=== PATIENT | male | born 1980 | race Caucasian/White ===

== ENCOUNTER 2019-08-19 19:22 | Outpatient (CLI) | payer OTHER | END 2019-08-19 19:23 | disposition home or self-care (01) | LOC: COV 19:22 | PROVIDERS: ATTEND Family Medicine | DX: R05 Cough (principal); M79.10 Myalgia, unspecified site; R53.83 Other fatigue; J02.9 Acute pharyngitis, unspecified | CPT/HCPCS: 81599 ==

== ENCOUNTER 2020-09-20 08:00 | Outpatient (CLI) | payer OTHER ==
[2020-09-20 12:26] LABS: BASOPHILS % (AUTO) 0.6 %; EOSINOPHILS # (AUTO) 0.1 10^3/uL (0.0-0.7); EOSINOPHILS % (AUTO) 1.3 %; HCT - HEMATOCRIT 44.5 % (42.0-52.0); HGB - HEMOGLOBIN 15.6 g/dL (14.0-18.0); LYMPHOCYTES # (AUTO) 1.7 10^3/uL (1.5-3.5); LYMPHOCYTES % (AUTO) 32.2 %; MEAN CORPUSCULAR HEMOGLOBIN 31.8 pg (27.0-31.0); MEAN CORPUSCULAR HGB CONC 35.1 g/dL (32.0-36.0); MEAN CORPUSCULAR VOLUME 90.8 fL (80.0-94.0); MEAN PLATELET VOLUME 9.8 fL (7.4-11.4); MONOCYTES # (AUTO) 0.4 10^3/uL (0.0-1.0); MONOCYTES % (AUTO) 6.7 %; NEUTROPHILS # (AUTO) 3.2 10^3/uL (1.5-6.6); PLT - PLATELET COUNT 308 10^3/uL (130-450); RED CELL DISTRIBUTION WIDTH 11.9 % (12.0-15.0); WHITE BLOOD COUNT 5.4 x10^3/uL (4.8-10.8)
[2020-09-20 12:47] LABS: ALBUMIN 4.5 g/dL (3.2-5.5); ALBUMIN/GLOBULIN RATIO 1.6 (1.0-2.2); ALKALINE PHOSPHATASE 51 IU/L (42-121); ALT ALANINE AMINOTRANSFERASE 18 IU/L (10-60); AST ASPARTATE AMINOTRANSFERASE 21 IU/L (10-42); BILIRUBIN,TOTAL 1.1 mg/dL (0.2-1.0); BUN - BLOOD UREA NITROGEN 28 mg/dL (6-20); CALCIUM 9.3 mg/dL (8.5-10.3); CARBON DIOXIDE - CO2 26 mmol/L (21-32); CHLORIDE 102 mmol/L (101-111); CHOL/HDL RATIO 4.6 (<5.0); CHOLESTEROL 190 mg/dL; CREATININE 0.9 mg/dL (0.6-1.2); GFR - MDRD 93 (>89); GLUCOSE 83 mg/dL (70-100); HDL CHOLESTEROL 41 mg/dL; LDL CHOLESTEROL,CALCULATED 133 mg/dL; LDL/HDL RATIO 3.2 (<3.6); POTASSIUM 4.2 mmol/L (3.5-5.0); SODIUM 138 mmol/L (135-145); TOTAL PROTEIN 7.4 g/dL (6.7-8.2); TRIGLYCERIDES 78 mg/dL; VALPROIC ACID (DEPAKOTE) 38.6 ug/mL; VLDL CHOLESTEROL 16 mg/dL
[2020-09-20 13:00] LABS: THYROID STIMULATING HORMONE 1.41 uIU/mL (0.34-5.60)
== END 2020-09-20 23:59 | disposition home or self-care (01) ==
LOC: LAB.WCP 08:00
PROVIDERS: ATTEND Family Medicine
DX: Z00.00 Encounter for general adult medical examination without abnormal findings (principal); R56.9 Unspecified convulsions
CPT/HCPCS: 36415; 80053; 80061; 80164; 83721; 84443; 85025

== ENCOUNTER 2020-10-20 18:07 | Emergency (ER) | payer OTHER ==
[2020-10-20] MEDS ORDERED: AMOXICILLIN 250 MG CAPSULE PO STA (18:33)
--- NOTE | 2020-10-20 18:36 | ED Physician Documentation ---
PD HPI ABD PAIN - Stated complaint Stated Complaint: COUGH/CHEST TIGHTNESS - Chief complaint Chief Complaint: Cardiac - History obtained from History obtained from: Patient - Additional information Additional information: Healthy 40-year-old gentleman who is fully immunized against Covid having had his second Pfizer shot many months ago presents with illness that started 2 nights ago with fevers chills and body aches. He had a cough. Now has a rattling sound in his chest. No persistent fevers or shortness of breath. Review of Systems Constitutional: reports: Fever, Chills, Myalgias Eyes: reports: Reviewed and negative Nose: reports: Reviewed and negative Throat: reports: Reviewed and negative Cardiac: reports: Reviewed and negative Respiratory: reports: Reviewed and negative PD PAST MEDICAL HISTORY - Past Surgical History Past Surgical History: No - Present Medications Home Medications: Ambulatory Orders Medication Instructions Recorded Confirmed Divalproex [Jakob Sheehan] 250 mg PO DAILY 08/16/13 10/20/20 Amoxicillin 2 tab PO TID 7 Days #42 tab 10/20/20 - Allergies Allergies/Adverse Reactions: Allergies Allergy/AdvReac Type Severity Reaction Status Date / Time No Known Drug Allergies Allergy Verified 08/16/13 04:49 - Social History Does the pt smoke?: No Smoking Status: Never smoker Does the pt drink ETOH?: No - Immunizations Immunizations are current?: Yes PD ED PE NORMAL - Vitals Vital signs reviewed: Yes - General General: Alert and oriented X 3, No acute distress - HEENT HEENT: Pharynx benign - Neck Neck: Supple, no meningeal sign, No bony TTP - Cardiac Cardiac: RRR, No murmur - Respiratory Respiratory: No respiratory distress, Other (Clear and focal rhonchi at the left base, nonlabored) - Abdomen Abdomen: Non tender - Back Back: No CVA TTP, No spinal TTP - Derm Derm: Normal color, Warm and dry - Neuro Neuro: Alert and oriented X 3, Normal speech Results - Vitals Vitals: Vital Signs - 24 hr 10/20/20 10/20/20 18:09 18:51 Temperature 36.7 C 36.6 C Heart Rate 97 84 Respiratory 16 16 Rate Blood Pressure 122/94 H 124/86 H O2 Saturation 100 99 Oxygen O2 Source Room air - EKG (time done) 1811 Rate: Rate (enter#) (93) Rhythm: NSR [place]: Normal Intervals: Normal [place] QRS: Normal Ischemia: Normal ST segments - Rads (name of study) 1v cxr Radiology: EMP read contemporaneously (NAD) PD MEDICAL DECISION MAKING - ED course ED course: He has clinical pneumonia, the x-ray is unimpressive. He is treated with high- dose amoxicillin per IDSA guidelines. We discussed Covid testing but since he is fully immunized he declined. Departure - Departure Disposition: Home, Self Care Clinical Impression: Pneumonia Qualifiers: Pneumonia type: due to unspecified organism Laterality: left Lung location: lower lobe of lung Qualified Code(s): J18.9 - Pneumonia, unspecified organism Condition: Good Record reviewed to determine appropriate education?: Yes Instructions: ED Pneumonia Adult Prescriptions: Amoxicillin 2 tab PO TID 7 Days #42 tab Comments: Call your doctor to arrange a follow-up appointment, make the next available appointment. In the interim, return anytime if worse or if new symptoms develop. Discharge Date/Time: 10/20/20 18:52
--- NOTE | 2020-10-20 18:51 | XRAY Report ---
PROCEDURE: Chest 1 View X-Ray INDICATIONS: Chest pain TECHNIQUE: One view of the chest was acquired. COMPARISON: None FINDINGS: Surgical changes and devices: None. Lungs and pleura: No pleural effusions or pneumothorax. Lungs are clear. Mediastinum: Mediastinal contours appear normal. Heart size is normal. Bones and chest wall: No suspicious bony lesions. Overlying soft tissues appear unremarkable. IMPRESSION: No acute cardiopulmonary findings Reviewed by: Jag Lamas MD on 10/20/2020 5:49 PM AKDT Approved by: Jag Lamas MD on 10/20/2020 5:49 PM AKDT Station ID: [id number]
[2020-10-20 18:53] VITALS: BP 124/86
== END 2020-10-20 18:52 | disposition home or self-care (01) ==
LOC: ED 18:07
DX: J18.9 Pneumonia, unspecified organism (principal)
CPT/HCPCS: 71045; 93005; 99283; A9270

== ENCOUNTER 2020-11-24 04:51 | Emergency (ER) | payer OTHER ==
[2020-11-24 05:13] LABS: RAPID STREP SCREEN Negative (Negative)
[2020-11-24] MEDS ORDERED: KETOROLAC 30 MG/ML VIAL IVP STA (05:18)
[2020-11-24] MEDS ORDERED: DEXAMETHASONE 10 MG/ML VIAL IV STA (05:18)
--- NOTE | 2020-11-24 05:22 | ED Physician Documentation ---
History of Present Illness - Stated complaint Stated Complaint: SWELLING, PX IN THROAT - Chief complaint Chief Complaint: Heent - History obtained from History obtained from: Patient - Additonal information Additional information: Patient comes emergency department complaining of acute onset of sore throat that started about an hour ago. 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 He states he took some NyQuil and try to get some more rest but that the pain got worse and he began to feel as though something was impinging on his throat inside. Patient denies any swelling or pain anywhere else. No rash. No fevers or chills. No rhinorrhea or cough. Review of Systems Ten Systems: 10 systems reviewed and negative Constitutional: reports: Reviewed and negative Eyes: reports: Reviewed and negative Ears: reports: Reviewed and negative Nose: reports: Reviewed and negative Throat: reports: Sore throat, Swollen tonsils Cardiac: reports: Reviewed and negative Respiratory: reports: Reviewed and negative GI: reports: Reviewed and negative : reports: Reviewed and negative Skin: reports: Reviewed and negative Musculoskeletal: reports: Reviewed and negative Neurologic: reports: Reviewed and negative Psychiatric: reports: Reviewed and negative Endocrine: reports: Reviewed and negative Immunocompromised: reports: Reviewed and negative PD PAST MEDICAL HISTORY - Past Medical History Past Medical History: Yes Cardiovascular: None Respiratory: None Neuro: Seizure disorder Endocrine/Autoimmune: None GI: None : None HEENT: None Psych: None Musculoskeletal: None Derm: None - Past Surgical History Past Surgical History: No - Present Medications Home Medications: Ambulatory Orders Medication Instructions Recorded Confirmed Divalproex [Jakob Sheehan] 1,000 mg PO DAILY 08/16/13 11/24/20 predniSONE [Deltasone] 60 mg PO DAILY 5 Days #15 tablet 11/24/20 - Allergies Allergies/Adverse Reactions: Allergies Allergy/AdvReac Type Severity Reaction Status Date / Time No Known Drug Allergies Allergy Verified 11/24/20 05:03 - Social History Does the pt smoke?: No Smoking Status: Never smoker Does the pt drink ETOH?: No Does the pt have substance abuse?: No - Immunizations Immunizations are current?: Yes - POLST Patient has POLST: No PD ED PE NORMAL - Vitals Vital signs reviewed: Yes - General General: Alert and oriented X 3, No acute distress, Well developed/nourished - HEENT HEENT: Atraumatic, PERRL, EOMI, Moist mucous membranes - Neck Neck: Supple, no meningeal sign - Cardiac Cardiac: RRR, No murmur - Respiratory Respiratory: No respiratory distress, Clear bilaterally - Derm Derm: Normal color, Warm and dry, No rash - Extremities Extremities: No deformity, No edema - Neuro Neuro: Alert and oriented X 3 - Psych Psych: Normal mood, Normal affect Results - Vitals Vitals: Vital Signs - 24 hr 11/24/20 11/24/20 11/24/20 05:01 06:27 06:45 Temperature 36.8 C 36.8 C Heart Rate 113 H 66 66 Respiratory 16 15 15 Rate Blood Pressure 118/88 H 99/74 99/74 O2 Saturation 98 96 96 Oxygen O2 Source Room air - Labs Labs: Laboratory Tests 11/24/20 05:00 Group A Strep Rapid Negative - Rads (name of study) CT soft tissue neck Radiology: Final report received, EMP read indepedently, See rad report (L posterior LAD) PD MEDICAL DECISION MAKING - ED course Complexity details: reviewed results, re-evaluated patient, considered differential, d/w patient ED course: Patient was treated with Decadron and Toradol, and was sent for CT with contrast of the soft tissues of the neck. This showed multiple lymph nodes that were borderline enlarged and one enlarged left posterior pharyngeal level 1 lymph node, corresponding with the area of enlargement on patient's exam. No abscess or other fluid collection was noted. Patient strep test was also negative. I discussed the findings with the patient. At this time, I do not find indication for antibiotics. I will give him a prescription for prednisone that he may fill and take as needed if his pharyngeal pain and swelling flares up. The patient is stable and there is no evidence of impending airway compromise and can be discharged home. Departure - Departure Disposition: 01 Home, Self Care Clinical Impression: Cervical lymphadenitis Condition: Stable Instructions: ED Cervical Adenitis No Abx Tx Prescriptions: predniSONE [Deltasone] 60 mg PO DAILY 5 Days #15 tablet Comments: Your CT scan shows an enlarged lymph node in the area where you are feeling the swelling. You have some other lymph nodes that are borderline enlarged on both sides of your neck, as well. This is not uncommon for this location, though it is possible that you may be fighting off an upper respiratory virus that has caused the acute swelling of an inflammation of the lymph node as you have experienced tonight. You may take ibuprofen and Tylenol for this. If the swelling becomes especially bothersome, you may take a dose of prednisone, which is a steroid, as needed. Discharge Date/Time: 11/24/20 06:45
[2020-11-24] MEDS ORDERED: IOPAMIDOL-300 100 ML VIAL ONE (05:27)
[2020-11-24] MEDS ORDERED: IOPAMIDOL-300 100 ML VIAL IVP ONE (05:54)
[2020-11-24 06:32] VITALS: BP 99/74
--- NOTE | 2020-11-24 08:36 | CT Report ---
PROCEDURE: SOFT TISSUE NECK W INDICATIONS: Left posterior pharyngeal swelling CONTRAST: IV CONTRAST: Isovue 300 ml: 100 PO CONTRAST: *NO PO CONTRAST TECHNIQUE: After the administration of intravenous contrast, 3.0 mm axial sections acquired from the sella to th e aortic arch. Additional oblique axial 3.0 mm sections acquired through the pharynx. 3 mm thick co ruth reformats were generated. For radiation dose reduction, the following was used: automated exp osure control, adjustment of mA and/or kV according to patient size. COMPARISON: None. FINDINGS: Image quality: Excellent. Lymph nodes: The bilateral jugular chain level 2 lymph nodes are prominent but not threshold enlarged . There is a left sublingual lymph node with short axis diameter of 6 mm. There are a few prominent b ut not threshold and large posterior chain lymph nodes on the left measuring up to 7 mm. No threshold enlarged cervical or supraclavicular lymph nodes by CT size criteria. Vessels: Visualized vasculature appears patent. Neck spaces: The oropharynx, nasopharynx, and pharynx demonstrate no mucosal lesions. The vocal cor ds, false vocal cords, pyriform sinuses, epiglottis, vallecula, and tongue base all appear normal. E xtramucosal spaces appear unremarkable. Glands: The parotid and submandibular glands appear normal. The thyroid is normal in size and there are no incidental findings. Miscellaneous: Visualized brain and orbits appear normal. Lung apices appear clear. Superficial so ft tissues appear normal. Bones: No suspicious bony lesions. Visualized sinuses and mastoids appear unremarkable. IMPRESSION: Prominent but not threshold enlarged bilateral level 2 lymph nodes and left posterior chain lymph nod es. These are presumably reactive. Follow-up recommended to document resolution. There is no mass or fluid collection identified. No significant change from preliminary report. Reviewed by: Jabari Garcia MD on 11/24/2020 8:35 AM PDT Approved by: Jabari Garcia MD on 11/24/2020 8:35 AM PDT Station ID: [id number]
== END 2020-11-24 06:45 | disposition home or self-care (01) ==
LOC: ED 04:51
DX: L04.0 Acute lymphadenitis of face, head and neck (principal)
CPT/HCPCS: 70491; 87070; 87430; 96374; 99284; Q9967

== ENCOUNTER 2022-01-29 08:00 | Outpatient (CLI) | payer OTHER ==
[2022-01-29 19:55] LABS: BILIRUBIN,URINE NEGATIVE (NEGATIVE); CLARITY,URINE CLEAR (CLEAR); GLUCOSE, URINE (UA) NEGATIVE (NEGATIVE); KETONES,URINE (UA) NEGATIVE (NEGATIVE); LEUKOCYTE ESTERASE, URINE NEGATIVE (NEGATIVE); NITRITE,URINE NEGATIVE (NEGATIVE); OCCULT BLOOD,URINE NEGATIVE (NEGATIVE); PROTEIN,URINE NEGATIVE (NEGATIVE); UROBILINOGEN,URINE 0.2 (NORMAL) E.U./dL (NORMAL)
[2022-01-29 20:03] LABS: BACTERIA,URINE Rare /HPF (None Seen); RBC,URINE None Seen /HPF (0-5); SQUAMOUS EPITHELIAL CELL,UR RARE Squamous (<= Few); WBC,URINE 0-3 /HPF (0-3)
== END 2022-01-29 23:59 | disposition home or self-care (01) ==
LOC: LAB.S 08:00
PROVIDERS: ATTEND Physician Assistant Medical
DX: R10.30 Lower abdominal pain, unspecified (principal); E78.5 Hyperlipidemia, unspecified
CPT/HCPCS: 81001; 87086

== ENCOUNTER 2022-01-31 12:32 | Outpatient (CLI) | payer OTHER ==
--- NOTE | 2022-02-01 09:33 | Ultrasound Report ---
PROCEDURE: Testicle INDICATIONS: RIGHT EPISISYMITIS; NO PRIORS TECHNIQUE: Real-time scanning was performed of the scrotum and testicles, with image documentation. Color and p ulse Doppler interrogation was performed of both testicles. COMPARISON: None. FINDINGS: Right: Testicle is normal in size at 4.6 x 3.7 x 2.4 cm, and homogenous in echotexture. Epididymis is normal in overall size and morphology. A 0.2 cm epididymal cyst is noted in the epididymal head. Moderate hydrocele with internal echo. No varicoceles. Overlying scrotal skin is normal in thickness . There is a inguinal hernia with the defect measuring 1.1 cm. There is a 0.7 cm diameter round, hetero geneous, hypoechoic, solid structure within the inguinal canal, demonstrating internal vascularity. I t is noncompressible. Left: Testicle is normal in size at 4.4 x 1.9 x 2.3 cm, and homogeneous in echotexture. Epididymis is normal in overall size and morphology. No hydrocele. There are varicoceles. Overlying scrotal sk in is normal in thickness. Doppler: Color and pulse Doppler demonstrate normal and symmetric arterial flow in both testicles. IMPRESSION: 1. Normal testicles bilaterally. No findings to suggest testicular torsion. No testicular mass. 2. Small epididymal cyst in the right epididymal head. 3. A moderate-sized hydrocele with internal echo. 4. Left varicoceles. 5. Right inguinal hernia. 6. A 0.7 cm diameter round solid mass is seen within the inguinal canal, demonstrating heterogeneous, hypoechoic echotexture with internal vascularity. It is noncompressible. Differential diagnoses incl ude granulation tissue related to vasectomy, a benign tumor such as adenomatoid tumor, angioleiomyoma , lipoma, and rarely malignant neoplasm such as liposarcoma or leiomyosarcoma. Recommend CT for follo w-up evaluation. Reviewed by: Godwin Vergara MD on 02/01/2022 9:32 AM PDT Approved by: Godwin Vergara MD on 02/01/2022 9:32 AM PDT Station ID: [id number]
== END 2022-01-31 12:33 | disposition home or self-care (01) ==
LOC: DI 12:32
PROVIDERS: ATTEND Physician Assistant Medical
DX: N45.1 Epididymitis (principal); N50.3 Cyst of epididymis; N43.3 Hydrocele, unspecified; I86.1 Scrotal varices; K40.90 Unilateral inguinal hernia, without obstruction or gangrene, not specified as recurrent; R22.2 Localized swelling, mass and lump, trunk

== ENCOUNTER 2022-02-02 15:06 | Outpatient (CLI) | payer OTHER ==
[2022-02-02] MEDS ORDERED: iohexoL-300 100 ML VIAL ONE ×2 (15:12→16:39)
[2022-02-02] MEDS ORDERED: DIATRIZOATE MEGLU/DIATRIZO SOD 30 ML BOTTLE PO ONE ×2 (15:12→17:48)
--- NOTE | 2022-02-02 17:08 | CT Report ---
PROCEDURE: ABDOMEN/PELVIS W INDICATIONS: PELVIC MASS CONTRAST: 100ml omni 300 TECHNIQUE: After the administration of IV and oral contrast, 5 mm thick sections acquired from the diaphragms to the symphysis. 5 mm thick coronal and sagittal reformats were acquired. For radiation dose reducti on, the following was used: automated exposure control, adjustment of mA and/or kV according to sandrita ent size. COMPARISON: Correlation is made with recent scrotal ultrasound, 02/01/2022. FINDINGS: Image quality: Excellent. ABDOMEN: Lung bases: Focal infiltrate can be seen involving the retrocardiac left lower lobe posteriorly, as o n series 4 image 18. Heart size is normal. Solid organs: Liver and spleen are normal in size and enhancement. Gallbladder wall does not appear thickened. Biliary system is non dilated. Pancreas enhances normally. No adrenal nodules. Kidn eys demonstrate normal size and enhancement, without hydronephrosis. Peritoneum and bowel: Bowel loops demonstrate normal wall thickness and caliber. No free fluid or a ir. A normal appendix is incidentally noted. Nodes and vessels: No retroperitoneal or mesenteric adenopathy by size criteria. Aorta and inferior vena cava are normal in size. Miscellaneous: No ventral hernias. PELVIS: Genitourinary: Bladder wall thickness is normal. Miscellaneous: No inguinal hernias or adenopathy. Scrutiny is given to the scrotum. The previously seen right spermatic cord nodule is definitely seen on the current study. No significant inflammatory change can be seen of the scrotum or the inguinal r egions. Bones: No suspicious bony lesions. No vertebral body compression fractures. IMPRESSION: Left lower lobe pulmonary infiltrate. No significant abnormality seen of the scrotum or inguinal regions. The previously described right in guinal hernia is not adequately seen on the current study. The previously described right spermatic cord nodule is not definitely seen on the current study. Incidental note is made of: Normal appendix Reviewed by: Casimiro James MD on 02/02/2022 4:07 PM [facility]OM[facility] Approved by: Casimiro James MD on 02/02/2022 4:07 PM [facility]OM[facility] Station ID: [id number]
[2022-02-02] MEDS ORDERED: iohexoL-300 100 ML VIAL IVP ONE (17:47)
== END 2022-02-02 15:07 | disposition home or self-care (01) ==
LOC: DI 15:06
PROVIDERS: ATTEND Physician Assistant Medical
DX: R19.03 Right lower quadrant abdominal swelling, mass and lump (principal); R10.30 Lower abdominal pain, unspecified; K40.90 Unilateral inguinal hernia, without obstruction or gangrene, not specified as recurrent; R91.8 Other nonspecific abnormal finding of lung field
CPT/HCPCS: 74177; Q9963; Q9967